=== PATIENT | female | born 1950 | race Caucasian/White ===

== ENCOUNTER → 2024-11-01 11:07 | Outpatient (REF) | payer OTHER, SELFPAY | LOC: HWRAD 11:07 | PROVIDERS: ATTENDING PHYSICIAN Family Medicine | DX: R79.89 Other specified abnormal findings of blood chemistry (principal) | CPT/HCPCS: 76700 ==

== ENCOUNTER → 2025-01-11 07:20 | Outpatient (REF) | payer OTHER, SELFPAY | LOC: PAVMRI 07:20 | PROVIDERS: ATTENDING PHYSICIAN Family Medicine | DX: E83.110 Hereditary hemochromatosis (principal) | CPT/HCPCS: 74183; A9575 ==

== ENCOUNTER → 2025-02-06 13:36 | Outpatient (REF) | payer OTHER, SELFPAY | LOC: HWWDC 13:36 | PROVIDERS: ATTENDING PHYSICIAN Family Medicine | DX: Z12.31 Encounter for screening mammogram for malignant neoplasm of breast (principal); Z78.0 Asymptomatic menopausal state | CPT/HCPCS: 77063; 77067; 77080 ==

== ENCOUNTER 2025-02-16 06:20 | Day surgery (SDC) | payer OTHER, SELFPAY ==
[2025-02-02 14:02] VITALS: BMI 30.5
[2025-02-16] VITALS (8 sets, daily range): BP systolic 118–137; BP diastolic 56–85; BMI 31.2
--- NOTE | 2025-02-16 07:46 | HP.FOC2 ---
Focused History & Physical
Chief Complaint
HPI:
Chief Complaint: Symptomatic cholelithiasis
HPI / Indication for Planned Procedure: Patient is a 75-year-old female recently seen in outpatient surgical evaluation secondary to history of intermittent postprandial back pain towards the right costal margin radiating to the right scapular and
shoulder area. Ultrasound evaluation confirmed stones in the neck of the gallbladder, no wall thickening or pericholecystic edema. Common bile duct top normal at 7 mm.Subsequent MRI also confirms cholelithiasis.
Patient presents today for cholecystectomy for management of cholelithiasis
Relevant Past Medical History: Other (Depression, hyperlipidemia, hypothyroid, hemochromatosis, hypertension)
Relevant Social History: Negative
Relevant Family History: Negative
Relevant Past Surgical History: Positive for (Partial hysterectomy and oophorectomy)
Review of Systems
Review of Pertinent Systems: All Systems Negative
Medication
See Medication form for detailed medications: Yes
Medication List (including Herbals & OTC):
allopurinol 100 mg tablet 200 mg PO HS 02/09/25
atenolol 25 mg tablet 25 mg PO DAILY 02/09/25
atorvastatin 10 mg tablet 20 mg PO DAILY 02/09/25
diphenhydramine HCl 25 mg capsule (Benadryl) 25 mg PO HS PRN insomnia 02/09/25
levothyroxine 50 mcg tablet 50 mcg PO DAILY 02/09/25
Medications Reviewed: Yes
Allergies and Reactions
Patient has Allergies: No
Noted Allergies and Reactions:
Allergy/AdvReac Type Severity Reaction Status Date / Time
No Known Allergies Allergy Verified 02/09/25 12:51
Pertinent Physical Exam
All Other Systems: Negative
Head/Neck: Normal
Lungs: Normal
Heart: Normal
Abdomen: Normal
Extremities: Normal
Neurological: Normal
Diagnosis / Assessment
75-year-old female with history of symptomatic cholelithiasis presenting for cholecystectomy
Plan / Procedure
Laparoscopic cholecystectomy with intraoperative cholangiogram
Anesthesia/Sedation to be done by Anesthesia Provider: Yes
[2025-02-16] MEDS: TYLENOL 1000 MG PO (13:52)
[2025-02-16] MEDS: NORMOSOL-R/PLASMALYTE-A 1000 IV (13:53)
--- NOTE | 2025-02-16 14:35 | W.SUR.PREOP ---
Pre-Operative Surgical Note
-
I have examined this patient prior to the performance of the scheduled procedure.
The patient's condition is unchanged from the time of the current History and
Physical and the patient is able to undergo the scheduled procedure.
--- NOTE | 2025-02-16 16:27 | W.IMMPOSTOP ---
Surgical Immed Post Op Note
-
Primary Surgeon: Herson Mcmanus MD
Assisting Surgeon: María Martinez PA-C
Pre-op Diagnosis: Symptomatic cholelithiasis; hemochromatosis
Post-op Diagnosis: Symptomatic cholelithiasis; hemochromatosis
Procedure Performed: Laparoscopic cholecystectomy; core needle liver biopsy
Anesthesia Type: GETA +0.25% Marcaine with epi
Specimen / Cultures: Gallbladder with cystic duct stump; core needle liver biopsy x 3
Estimated Blood Loss: 12 mL
Complications: None immediate
Operative Findings: Somewhat contracted gallbladder with chronic wall thickening. Large gallstone impacted in distal cystic duct which was able to be extracted. Cystic duct controlled with 3 clips placed immediately adjacent to common bile duct.
Core needle liver biopsy performed with 3 passes. Hemostasis assured with monopolar cautery on liver capsule surface.
The assistance of María Martinez PA-C was required due to the complexity of the procedure. During the procedure María Le PA-C assisted with trocar placement, retraction of the gallbladder for exposure, managing the laparoscope for visualization,
and closure of the surgical incision sites. I was present for the entirety of the operative procedure.
--- NOTE | 2025-02-16 16:31 | OR.RPT ---
Operative Report
Operative Report
Date of operative procedure: 02/16/2025
Primary Surgeon: Herson Mcmanus MD
Histotechnologist: María Martinez PA-C
Pre-op Diagnosis: Symptomatic cholelithiasis; history of hemochromatosis
Post-op Diagnosis: Symptomatic cholelithiasis; history of hemochromatosis
Procedure Performed: Laparoscopic cholecystectomy; core needle liver biopsy
Anesthesia: GETA +0.25% Marcaine
Specimen / Cultures: Gallbladder with cystic duct stump; and core needle liver biopsy x 3
Estimated Blood Loss: 12 mL
Complications: None immediate
Indications for Operative Procedure: Patient is a 75-year-old female recently seen in outpatient surgical evaluation secondary to history of intermittent postprandial back pain towards the right costal margin radiating to the right scapular and
shoulder area. Ultrasound evaluation confirmed stones in the neck of the gallbladder, no wall thickening or pericholecystic edema. Common bile duct top normal at 7 mm.Subsequent MRI also confirms cholelithiasis but no choledocholithiasis. Patient
presents today for cholecystectomy for management of cholelithiasis. She also has a recent diagnosis of hemochromatosis and needle liver biopsy has been requested for assessment.
Brief Summary of Operative Findings: Somewhat contracted gallbladder with chronic wall thickening. Large gallstone impacted in distal cystic duct which was able to be extracted. Cystic duct controlled with 3 clips placed immediately adjacent to
common bile duct. Core needle liver biopsy performed with 3 passes. Hemostasis assured with monopolar cautery on liver capsule surface.
Operation in Detail: The patient was identified in the preoperative holding area. I confirmed the anticipated surgical procedure with the patient and her at bedside preoperatively. She was interviewed by the anesthesia and nursing staff
then brought back to the operating room. The patient was placed on the operating table in supine position. The bilateral upper extremities were carefully placed on padded arm boards and secured. Pneumatic compression boots were on the bilateral
lower extremities. Following induction of general endotracheal anesthesia the patient was administered cefotetan 2 g IV for prophylactic antibiotic coverage. The patient's anterior abdominal wall was now widely and sterilely prepped with
ChloraPrep and then draped in the usual manner. The surgical time out was completed and the procedure was confirmed.
I initially proceeded with Veress needle insufflation at the left subcostal midclavicular line location. Once insufflated to 12 mmHg pressure then a supraumbilical 5 mm trocar was placed with optical viewing entry. The laparoscope was inserted.
There was no evidence of iatrogenic injury from access and the Veress needle was withdrawn. An epigastric 12 mm trocar was placed followed by 2 right sided lateral 5 mm trocars all under direct visualization. There were some omental adhesions in
the infraumbilical region but no adhesions which affected trocar placement or cholecystectomy. The patient was now transition into reverse Trendelenburg and right side up to aid in exposure of the right upper quadrant.
The gallbladder was identified in its usual anatomic location. The fundic region was grasped and retracted anteriorly. There were no adhesions to the gallbladder but it was a bit contracted and whitish in appearance consistent with chronic
cholecystitis. The gallbladder was now further retracted anteriorly and cranially to expose all the way down to the infundibulum. The infundibular area was now grasped and manipulated to expose the peritoneal attachments around the region of the
triangle of Calot. The peritoneum was carefully and superficially opened with hook on the cautery device both postero-laterally and amrita-medially. The gallbladder was readily elevated off the cystic plate of the liver bed identifying the main
cystic artery anteriorly. The connective tissue/fatty tissue attachments in the triangle were completely freed until the cystic artery and its branches and the cystic duct were fully exposed with both an anterior and wide posterior critical view of
safety. I first applied 2 clips proximally on the cystic artery and 1 clip distally and divided it. With the cystic duct exposed I visualized what appeared to be a stone in the distal portion. Careful palpation confirmed the presence of a
impacted stone within the distal cystic duct. With careful and tedious dissection the cystic duct was mobilized essentially down to its junction, bile duct as the large gallstone was present just a few millimeters upstream from this location.
For control I divided the gallbladder at the infundibular region and placed an 0 PDS Endoloop on the gallbladder side to prevent any spillage of stones or bile. Now the cystic duct stump was able to be further manipulated. The proximal portion of
the cystic duct was too tight to extract the distal stone. There was enough of the distal cystic duct to place 2 clips for control proximal to the impacted gallstone. Once cystic duct control was ensured I then utilized scissors to divide the
cystic duct essentially at the level of where the stone was impacted confirming its presence. The stone was fully removed and the cystic duct stump was removed with the gallbladder specimen later. 1 additional clip was placed on the cystic duct.
There is no evidence of any bile staining or leakage. Cholangiogram was omitted due to the presence of this impacted stone and the very short residual cystic duct connection to the common bile duct.
The gallbladder was now retracted off of its posterior liver bed attachments. The gallbladder was now dissected free from its remaining liver bed attachments with monopolar cautery intact and placed within a specimen retrieval bag.
The surgical field inspected. Meticulous hemostasis was assured. There was no evidence of any bile staining or leakage. There was no evidence of bleeding. The right upper quadrant was locally irrigated with sterile saline with clear return. An
11 blade stab incision was made at the right costal margin. The core needle biopsy device was passed through the stab incision and directed just to the patient's right side of the falciform ligament. 3 separate passes were made for 3 core needle
specimens of the liver. Monopolar cautery was utilized to ensure hemostasis at these individual sites. There was no excessive bleeding. The liver was observed and no hematoma or swelling was noted.
The patient was now returned to neutral position. The gallbladder was extracted at the epigastric port site without dilation of the fascia. The 12 mm trocar site was now closed with a [id number] 0 Vicryl sutures placed utilizing an Endo Close
device. The remaining air was evacuated out of the abdominal cavity. The 5 mm trocar sites were now removed. Skin was closed at all of the surgical sites with buried interrupted 4-0 Monocryl. Sterile surgical glue dressings were applied. The
patient tolerated the procedure well and was transferred to the recovery unit for routine postoperative monitoring.
The assistance of María Martinez PA-C was required due to the complexity of the procedure. During the procedure María Le PA-C assisted with trocar placement, retraction of the gallbladder for exposure, managing the laparoscope for visualization,
and closure of the surgical incision sites. I was present for the entirety of the operative procedure.
[2025-02-16] MEDS: DILAUDID 0.5 MG IV ×2 (17:08→17:18)
== END 2025-02-16 18:00 | disposition home or self-care (01) ==
LOC: SDS 06:20
PROVIDERS: ATTENDING PHYSICIAN Surgery; FAMILY PHYSICIAN Family Medicine
DX: K80.10 Calculus of gallbladder with chronic cholecystitis without obstruction (principal); E83.110 Hereditary hemochromatosis; K66.0 Peritoneal adhesions (postprocedural) (postinfection)
CPT/HCPCS: 47379; 47562; 36415; 88304; 88307; 88313; 93005

== ENCOUNTER → 2025-05-17 15:00 | Outpatient (REF) | payer OTHER, SELFPAY | LOC: HWRAD 15:00 | PROVIDERS: ATTENDING PHYSICIAN Family Medicine | DX: R06.02 Shortness of breath (principal); R10.A1 Flank pain, right side | CPT/HCPCS: 71046; 73502 ==